=== PATIENT | female | born 1985 | race African-American/Black ===

== ENCOUNTER 2017-09-11 13:11 | Emergency (ER) | payer MEDICAID ==
[~2017-09-11] VITALS: Ht 162.6 cm; Wt 95.0 kg
[2017-09-11 13:12] VITALS: BP 166/88; PULSE 71; RESP 16; TEMP 98.2; O2SAT 99
[2017-09-11 13:48] LABS: BILIRUBIN, URINE NEG (NEG); BLOOD, URINE SMALL (NEG); GLUCOSE,URINE NEG (NEG); KETONE, URINE NEG (NEG); MUCUS URINE FEW /lpf (OCC); NITRITE,URINE NEG (NEG); PH, URINE 6.5 (5.0-8.5); SQUAMOUS EPITHELIAL CELL URINE 1 /hpf (0-5); URINE COLOR YELLOW (YELLW/STRAW); URINE LEUKOCYTE ESTERASE NEG (NEG)
[2017-09-11] MEDS ORDERED: SODIUM CHLOR 0.9% 1000 ML INJ 1,000 ML IV SCH (14:00)
[2017-09-11] MEDS ORDERED: PANTOPRAZOLE SODIUM 40 MG VIAL IVP ONE (14:00)
[2017-09-11] MEDS ORDERED: FAMOTIDINE 20 MG/2 ML VIAL IV PUSH ONE (14:00)
--- NOTE | 2017-09-11 14:13 | PD ---
HPI Chief Complaint: Abdominal Pain Time Seen by Provider: 14:10 Travel History International Travel<30 days: No Contact w/Intl Traveler<30days: No Traveled to known affect area: No History of Present Illness HPI 31-year-old female that presents to the ED for evaluation of abdominal pain since Tuesday. Per patient he only comes when she eats or drinks. Otherwise she has minimal discomfort. Currently she has no pain. Per patient she did not try anything for it. She does have a history gastritis in the past but states that this feels different as last time when she had a gastritis she had severe pain and she couldn't move anything no better or worse with eating. She denies any changes in her stool earlier than some diarrhea which per patient is liquidy but no change in color. Per patient he has no blood or dark stools. She denies any surgeries to her abdomen. She denies . Per patient she does feel somewhat nauseous. She denies any allergies to medication. Per patient the discomfort gets to be sharp and pressure-like. Per patient she describes it as a contraction. Per patient the pain gets to be 7 out of 10. Currently she has no pain. She has not seen anybody for this. She denies any surgeries ever to her abdomen. No other medical issues. PFSH Past Medical History Medical History: Denies Significant Hx ?: Unknown LMP: 08/2017 : 4 Social History Alcohol Use: No Tobacco Use: No Substance Use: No Allergies-Medications (Allergen,Severity, Reaction): Coded Allergies: No Known Allergies (Verified Allergy, Unknown, 09/11/17) Reported Meds & Prescriptions Reported Meds & Active Scripts Active Sucralfate 1 Gram Tab 1 Gm PO TID on empty stomach Zantac (Ranitidine HCl) 150 Mg Tab 150 Mg PO BID Protonix (Pantoprazole Sodium) 20 Mg Tab 20 Mg PO DAILY Review of Systems Except as stated in HPI: all other systems reviewed are Neg Physical Exam Narrative GENERAL: SKIN: Warm and dry. HEAD: Atraumatic. Normocephalic. EYES: Pupils equal and round. No scleral icterus. No injection or drainage. ENT: No nasal bleeding or discharge. Mucous membranes pink and moist. Tongue is midline. No uvula deviation. NECK: Trachea midline. No JVD. CARDIOVASCULAR: Regular rate and rhythm. No murmurs, S3, S4. RESPIRATORY: No accessory muscle use. Clear to auscultation. Breath sounds equal bilaterally. GASTROINTESTINAL: Abdomen soft, non-tender, nondistended. Hepatic and splenic margins not palpable. MUSCULOSKELETAL: Extremities without clubbing, cyanosis, or edema. No obvious deformities. Full range of motion of the upper and lower extremities bilaterally. 2+ pulses bilaterally. NEUROLOGICAL: Awake and alert. No obvious cranial nerve deficits. Motor grossly within normal limits. Five out of 5 muscle strength in the arms and legs. Normal speech. PSYCHIATRIC: Appropriate mood and affect; insight and judgment normal. Data Data Last Documented VS Vital Signs Date Time Temp Pulse Resp B/P (MAP) Pulse Ox O2 Delivery O2 Flow Rate FiO2 09/11/17 13:12 98.2 71 16 166/88 (114) 99 Orders Orders Urinalysis - C+S If Indicated (09/11/17 13:23) Ed Urine Pregnancytest Poc (09/11/17 13:23) Complete Blood Count With Diff (09/11/17 14:00) Comprehensive Metabolic Panel (09/11/17 14:00) Lipase (09/11/17 14:00) Iv Access Insert/Monitor (09/11/17 14:00) Pantoprazole Inj (Protonix Inj) (09/11/17 14:00) Sodium Chlor 0.9% 1000 Ml Inj (Ns 1000 M (09/11/17 14:00) Famotidine Inj (Pepcid Inj) (09/11/17 14:00) Us Abdomen Gallbladder (09/11/17 ) Ed Discharge Order (09/11/17 15:48) Labs Laboratory Tests Test 09/11/17 13:36 09/11/17 14:07 Urine Color YELLOW Urine Turbidity CLEAR Urine pH 6.5 Urine Specific [place] 1.020 Urine Protein TRACE mg/dL Urine Glucose (UA) NEG mg/dL Urine Ketones NEG mg/dL Urine Occult Blood SMALL Urine Nitrite NEG Urine Bilirubin NEG Urine Urobilinogen LESS THAN 2.0 MG/DL Urine Leukocyte Esterase NEG Urine RBC 1 /hpf Urine WBC 1 /hpf Urine Squamous Epithelial Cells 1 /hpf Urine Mucus FEW /lpf Microscopic Urinalysis Comment CULT NOT INDICATED White Blood Count 4.8 TH/MM3 Red Blood Count 4.68 MIL/MM3 Hemoglobin 13.3 GM/DL Hematocrit 39.4 % Mean Corpuscular Volume 84.2 FL Mean Corpuscular Hemoglobin 28.4 PG Mean Corpuscular Hemoglobin Concent 33.7 % Red Cell Distribution Width 13.0 % Platelet Count 235 TH/MM3 Mean Platelet Volume 10.7 FL Neutrophils (%) (Auto) 50.9 % Lymphocytes (%) (Auto) 41.1 % Monocytes (%) (Auto) 6.1 % Eosinophils (%) (Auto) 1.4 % Basophils (%) (Auto) 0.5 % Neutrophils # (Auto) 2.5 TH/MM3 Lymphocytes # (Auto) 2.0 TH/MM3 Monocytes # (Auto) 0.3 TH/MM3 Eosinophils # (Auto) 0.1 TH/MM3 Basophils # (Auto) 0.0 TH/MM3 CBC Comment DIFF FINAL Differential Comment Blood Urea Nitrogen 13 MG/DL Creatinine 0.79 MG/DL Random Glucose 83 MG/DL Total Protein 8.3 GM/DL Albumin 3.8 GM/DL Calcium Level 8.7 MG/DL Alkaline Phosphatase 87 U/L Aspartate Amino Transf (AST/SGOT) 11 U/L Alanine Aminotransferase (ALT/SGPT) 19 U/L Total Bilirubin 0.3 MG/DL Sodium Level 139 MEQ/L Potassium Level 3.6 MEQ/L Chloride Level 107 MEQ/L Carbon Dioxide Level 27.5 MEQ/L Anion Gap 5 MEQ/L Estimat Glomerular Filtration Rate 104 ML/MIN Lipase 109 U/L MDM Medical Decision Making Medical Screen Exam Complete: Yes Emergency Medical Condition: Yes Medical Record Reviewed: Yes Interpretation(s) CBC & BMP Diagram 09/11/17 14:07 Total Protein 8.3 H, Albumin 3.8, Calcium Level 8.7, Alkaline Phosphatase 87, Aspartate Amino Transf (AST/SGOT) 11 L, Alanine Aminotransferase (ALT/SGPT) 19, Total Bilirubin 0.3 UA negative lipase WNL Last Impressions Gall Bladder Ultrasound 09/11/17 0000 Signed Impressions: Service Date/Time: Monday, September 11, 2017 14:52 - CONCLUSION: Right upper quadrant abdominal ultrasound within normal limits. Mitch Partida MD Differential Diagnosis Gastritis versus gastroenteritis versus gastroparesis versus peptic ulcer disease versus gallbladder disease versus pancreatitis Narrative Course 31-year-old female that presents to the ED for evaluation of abdominal pain with eating. Patient was properly examined and was found to have signs and symptoms which appear to be comes sister with possible gastritis versus gallbladder disease versus pancreatitis. Pain only comes with eating. She is currently asymptomatic. At this time I recommend labs and imaging. She was given medications. Labs and imaging showed no sign of acute disease. Patient was reassured. This time patient appears to have likely GERD versus gastritis versus peptic ulcer disease. No sign of bleeding at this time. Recommend trial of outpatient treatment and that modification. Patient agrees with this. Case discussed in my attending Dr. Monzon who agrees with discharge. Patient was given prescriptions for Protonix, Zantac as well as sucralfate. Told to follow with PCP. See ED worsening symptoms. Diagnosis Primary Impression: PUD (peptic ulcer disease) Patient Instructions: General Instructions Additional Instructions: Take medications as prescribed. Diet modifications were discussed. See ED worsening symptoms. Follow with PCP or GI doctor in the next couple of weeks for further evaluation if needed. You might need EGD outpatient in the future if this continues to be an issue. Med/Other Pt SpecificInfo: Prescription(s) given Scripts Sucralfate (Sucralfate) 1 Gram Tab 1 GM PO TID for Duodenal ulcer, #20 TAB 0 Refills on empty stomach Prov: Julius Casillas MD 09/11/17 Ranitidine (Zantac) 150 Mg Tab 150 MG PO BID for Reduce Stomach Acid, #60 TAB 0 Refills Prov: Julius Casillas MD 09/11/17 Pantoprazole (Protonix) 20 Mg Tab 20 MG PO DAILY for Reflux, #30 TAB 0 Refills Prov: Julius Casillas MD 09/11/17 Disposition: 01 DISCHARGE HOME Condition: Stable Brandon French Sep 11, 2017 14:13
[2017-09-11 14:17] LABS: AUTOMATED NEUTROPHIL # 2.5 TH/MM3 (1.8-7.7); BASOPHIL % 0.5 % (0.0-2.0); EOSINOPHIL # 0.1 TH/MM3 (0-0.4); EOSINOPHIL % 1.4 % (0.0-4.0); HEMATOCRIT 39.4 % (35.0-46.0); HEMOGLOBIN 13.3 GM/DL (11.6-15.3); LYMPH % 41.1 % (9.0-44.0); MEAN CELL VOLUME 84.2 FL (80.0-100.0); MEAN CORPUSCULAR HEMOGLOBIN 28.4 PG (27.0-34.0); MEAN CORPUSCULAR HGB CONC 33.7 % (32.0-36.0); MEAN PLATELET VOLUME 10.7 FL (7.0-11.0); MONO % 6.1 % (0.0-8.0); MONOCYTE # 0.3 TH/MM3 (0-0.9); NEUT % 50.9 % (16.0-70.0); PLATELET COUNT 235 TH/MM3 (150-450); RED BLOOD COUNT 4.68 MIL/MM3 (4.00-5.30); WHITE BLOOD COUNT 4.8 TH/MM3 (4.0-11.0)
[2017-09-11 14:38] LABS: ALBUMIN 3.8 GM/DL (3.4-5.0); ALT (GPT) 19 U/L (10-53); AST (GOT) 11 U/L (15-37); BICARBONATE 27.5 MEQ/L (21.0-32.0); BLOOD UREA NITROGEN 13 MG/DL (7-18); CALCIUM 8.7 MG/DL (8.5-10.1); CHLORIDE 107 MEQ/L (98-107); CREATININE 0.79 MG/DL (0.50-1.00); GLOMERULAR FILTRATION RATE 104 ML/MIN (>89); GLUCOSE,RANDOM 83 MG/DL (74-106); LIPASE 109 U/L (73-393); SODIUM (NA) 139 MEQ/L (136-145)
[2017-09-11 14:40] LABS: ALKALINE PHOSPHATASE 87 U/L (45-117); TOTAL BILIRUBIN ADULT 0.3 MG/DL (0.2-1.0); TOTAL PROTEIN 8.3 GM/DL (6.4-8.2)
--- NOTE | 2017-09-11 15:27 | RADRPT ---
EXAM DATE/TIME: 09/11/2017 14:52 [facility] COMPARISON: No previous studies available for comparison. INDICATIONS : Right upper quadrant pain. MEDICAL HISTORY : None. SURGICAL HISTORY : None. ENCOUNTER: Initial ACUITY: 1 week PAIN SCORE: 2/10 LOCATION: Right upper quadrant MEASUREMENTS: LIVER: 15.6 cm length COMMON DUCT: 5 mm RIGHT KIDNEY: 11.3 x 4.1 x 4.8 cm FINDINGS: LIVER: Normal echotexture without focal lesion or ductal dilatation. COMMON DUCT: No intraluminal mass or stone visualized. GALLBLADDER: Contains no stones, demonstrates no wall thickening or pericholecystic fluid. PANCREAS: The visualized portions are within normal limits. RIGHT KIDNEY: No evidence of hydronephrosis, stone, or mass. CONCLUSION: Right upper quadrant abdominal ultrasound within normal limits. Mitch Partida MD on September 11, 2017 at 15:25 Board Certified Radiologist. This report was verified electronically.
[2017-09-11] MEDS ORDERED: SUCR1TAB PO (15:49)
[2017-09-11] MEDS ORDERED: ZANT150T2 PO (15:49)
[2017-09-11] MEDS ORDERED: PANT20 PO (15:49)
== END 2017-09-11 16:06 | disposition home or self-care (01) ==
LOC: NEPE 13:11
DX: K27.9 Peptic ulcer, site unspecified, unspecified as acute or chronic, without hemorrhage or perforation (principal)
CPT/HCPCS: 76705; 80053; 81001; 83690; 84703; 85025; 96374; 96375; 99285; C9113; J7030

== ENCOUNTER 2018-02-17 20:48 | Emergency (ER) | payer SELFPAY ==
[~2018-02-17] VITALS: Ht 165.1 cm; Wt 95.0 kg
[~2018-02-17 20:48] MED LIST: PANT20 PO; SUCR1TAB PO; ZANT150T2 PO
[2018-02-17 21:21] VITALS: BP 155/93; PULSE 90; RESP 20; TEMP 99.5; O2SAT 100
--- NOTE | 2018-02-17 21:57 | PD ---
HPI Chief Complaint: Back/ Neck Pain or Injury Time Seen by Provider: 21:32 Travel History International Travel<30 days: No Contact w/Intl Traveler<30days: No Traveled to known affect area: No History of Present Illness HPI 32-year-old black female presents emergency department we will complains of lower back pain. Patient states that she has had back pain now for approximately 2 months. She states that started after starting an exercise workout at the gym. She does do exercises such as squats. She was at the pool earlier today and was sitting on the edge for some time. She states that when she had gotten up she had increasing pain in her right lower back with some radiation into the right leg. She denies any focal weakness. She states that she has some tingling but no numbness. She denies any acute bowel or bladder changes. Symptoms are moderate. Worse with movement. Some relief with remaining still. She denies any direct trauma as far she can recall. No history of prior back injury. Patient denies any dysuria frequency. No incontinence. Denies . PFSH Past Medical History Medical History: Denies Significant Hx Diminished Hearing: No Immunizations Current: Yes Tetanus Vaccination: Unknown Influenza Vaccination: No ?: Not : 4 Past Surgical History Surgical History: No Previous Surgery Social History Alcohol Use: No Tobacco Use: No Substance Use: No Allergies-Medications (Allergen,Severity, Reaction): Coded Allergies: No Known Allergies (Verified Allergy, Unknown, 02/17/18) Reported Meds & Prescriptions Reported Meds & Active Scripts Active No Active Prescriptions or Reported Medications Review of Systems General / Constitutional: No: Fever Eyes: No: Visual changes HENT: No: Headaches Cardiovascular: No: Chest Pain or Discomfort Respiratory: No: Shortness of Breath Gastrointestinal: No: Abdominal Pain Genitourinary: No: Dysuria Musculoskeletal: Positive: Arthralgias, Limited ROM, Cramping, Pain, No: Weakness Skin: No Rash Neurologic: No: Weakness Psychiatric: No: Depression Endocrine: No: Polydipsia Hematologic/Lymphatic: No: Easy Bruising Physical Exam Narrative GENERAL: Well-developed, well-nourished in no acute distress. Nontoxic appearing. HEAD: Normocephalic, atraumatic. EYES: Pupils equal round and reactive. Extraocular motions intact. No scleral icterus. No injection or drainage. ENT: TMs clear without erythema. The external auditory canals clear. Nose: clear . Posterior pharynx is pink and moist. No tonsillar edema or exudate. Uvula midline. Airway patent. NECK: Trachea midline.Supple, nontender, moves head freely. No central bony tenderness or spasm. CARDIOVASCULAR: Regular rate and rhythm without murmurs, gallops, or rubs. RESPIRATORY: Clear to auscultation. Breath sounds equal bilaterally. No wheezes , rales, or rhonchi. GASTROINTESTINAL: Abdomen soft, non-tender, nondistended. No hepato-splenomegaly , or palpable masses. No guarding. EXTREMITIES: No clubbing, cyanosis, or edema. No joint tenderness, effusion, or edema noted. BACK: No central bony tenderness to palpation of the dorsal lumbar spine. no saddle anesthesia. She has intact sensation with good distal pulses. Able to heel and toe stand. She is able to bend forward to 90. without deformity or crepitance. No flank tenderness. Patient has localizing right paralumbar tenderness into the right buttocks. Negative straight leg raise bilaterally. Deep tendon reflexes are 2+ bilaterally. Data Data Last Documented VS Vital Signs Date Time Temp Pulse Resp B/P (MAP) Pulse Ox O2 Delivery O2 Flow Rate FiO2 02/17/18 21:21 99.5 90 20 155/93 (113) 100 [facility] Medical Decision Making Medical Screen Exam Complete: Yes Emergency Medical Condition: Yes Medical Record Reviewed: Yes Differential Diagnosis MDM: High Differential diagnoses: AAA,Fracture, sprain, strain, HNP, nerve or vascular injury, epidural abscess, pilonidal cyst, pyelonephritis, UTI, nephrolithiasis, ureterolithiasis Narrative Course A medical screening exam was performed: At the time of evaluation the presenting medical condition was determined not to be of an emergent nature. The patient was given the option of receiving additional care, but declined. Patient was given options for additional community resources from which to obtain care. The Patient Has Been advised to seek medical attention for their presenting complaint. The patient has been advised to return to the ER at any time if an emergent condition develops. Diagnosis Primary Impression: Encounter for medical screening examination Scripts No Active Prescriptions or Reported Meds Condition: Wilbert Malagon Feb 17, 2018 21:57
== END 2018-02-17 21:55 | disposition left against medical advice (07) ==
LOC: NEPD 20:48
DX: M54.5 Low back pain (principal); R20.2 Paresthesia of skin
CPT/HCPCS: 99281